=== PATIENT | female | born 1960 | race African-American/Black ===

== ENCOUNTER 2019-09-30 19:06 | Inpatient (IN) | payer BC ==
[~2019-09-30] VITALS: Ht 167.6 cm; Wt 64.7 kg
[2019-09-30] MEDS ORDERED: ACETAMINOPHEN 500 MG TABLET ONE (19:58)
[2019-09-30] MEDS ORDERED: ACETAMINOPHEN 500 MG TABLET PO ONE (20:00)
[2019-09-30] MEDS ORDERED: SODIUM CHLORIDE 0.9% 1,000ML IVBOLUS ONE (20:00)
[2019-09-30] MEDS ORDERED: SODIUM CHLORIDE FLUSH 10ML SYR IVF ONE (20:00)
[2019-09-30 20:23] LABS: MEAN CORPUSCULAR HGB CONC 32.2 g/dL (32.4-35.8); MEAN CORPUSCULAR VOLUME 77.8 fL (80-100); MEAN PLATELET VOLUME 9.6 fL (7.4-10.4); PLATELET COUNT 205 x10^3/uL (130-400); RED BLOOD COUNT 5.53 x10^6/uL (3.82-5.3); RED CELL DISTRIBUTION WIDTH 13.6 % (9.6-15.2)
[2019-09-30 20:28] LABS: ALANINE AMINOTRANSFERASE 23 U/L (12-78); ALBUMIN 3.1 g/dL (3.4-5.0); ANION GAP 5 mmol/L (5-15); CALCIUM 9.3 mg/dL (8.5-10.1); CHLORIDE 102 mmol/L (98-107); CREATININE 1.45 mg/dL (0.55-1.02)
[2019-09-30 20:30] LABS: ALKALINE PHOSPHATASE 129 U/L (45-117); BILIRUBIN,TOTAL 0.5 mg/dL (0.2-1.0); TOTAL PROTEIN 7.8 g/dL (6.4-8.2)
[2019-09-30 20:39] LABS: BASOPHILS # (AUTO) 0.02 x10^3/uL (0-0.1); BASOPHILS % (AUTO) 0 % (0-1); EOSINOPHILS # (AUTO) 0.01 x10^3/uL (0-0.4); EOSINOPHILS % (AUTO) 0 % (1-7); LYMPHOCYTES # (AUTO) 1.19 x10^3/uL (1-3.4); LYMPHOCYTES % (AUTO) 8 % (22-44); MD SCAN; MONOCYTES # (AUTO) 0.52 x10^3/uL (0.2-0.8); MONOCYTES % (AUTO) 4 % (2-9); NEUTROPHILS # (AUTO) 12.77 x10^3/uL (1.8-6.8); NEUTROPHILS % (AUTO) 88 % (42-75)
[2019-09-30 20:43] LABS: RAPID INFLUENZA A Negative (Negative); RAPID INFLUENZA B Negative (Negative)
[2019-09-30] MEDS ORDERED: PLEASE ENTER HEIGHT AND WEIGHT MC SCH (21:00)
[2019-09-30] MEDS ORDERED: PLEASE ENTER ALLERGIES MC SCH (21:00)
[2019-09-30] MEDS ORDERED: CEFTRIAXONE PMX 1GM/50ML 50 ML IV ONE (21:00)
--- NOTE | 2019-09-30 21:14 | NUR ---
pt attempted to provide urine sample but was unable.
--- NOTE | 2019-09-30 21:32 | NUR ---
Informed patient about the need for a urine sample, pt refused straight cath for ua
[2019-09-30] MEDS ORDERED: CEFTRIAXONE PMX 1GM/50ML 50 ML ONE (21:33)
[2019-09-30] MEDS ORDERED: SODIUM CHLORIDE 0.9% 1,000 ML IV ONE (23:18)
[2019-09-30] MEDS ORDERED: SODIUM CHLORIDE FLUSH 10ML SYR IVF PRN (23:30)
[2019-09-30] MEDS ORDERED: hydrALAzine 20 MG/ML, 1ML IVPush PRN (23:30)
[2019-09-30 23:41] LABS: INTERNATIONAL NORMALIZED RATIO 0.99 (0.93-1.1); PROTHROMBIN TIME 10.5 Seconds (9.6-11.5)
[2019-09-30 23:55] VITALS: BP 105/65
[2019-09-30 23:55] LABS: FREE T4 (FREE THYROXINE) 1.23 ng/dL (0.76-1.46)
[2019-10-01 00:07] VITALS: BP 105/65
[2019-10-01] MEDS: SODIUM CHLORIDE 0.9% 1,000 ML IV SCH ×2 (00:55→15:55)
[2019-10-01] MEDS: INSULIN LISPRO 100 UNITS/ML, PEN SQ-INSULIN SCH ×5 (01:12→21:51)
[2019-10-01] MEDS: INSULIN GLARGINE 100 UNITS/ML, PEN SQ-INSULIN SCH ×3 (01:12→21:52)
[2019-10-01] MEDS: HEPARIN 5,000 UNITS/ML, 1ML SQ SCH ×3 (01:12→16:47)
[2019-10-01 01:54] LABS: ESTIMATED AVERAGE GLUCOSE 355 mg/dL (0-126)
[2019-10-01] MEDS: ASPIRIN 81 MG TABLET EC PO SCH (05:43)
[2019-10-01 06:04] LABS: MEAN CORPUSCULAR HEMOGLOBIN 25.3 pg (27.0-34.8); MEAN CORPUSCULAR HGB CONC 32.4 g/dL (32.4-35.8); MEAN CORPUSCULAR VOLUME 77.9 fL (80-100); MEAN PLATELET VOLUME 9.4 fL (7.4-10.4); PLATELET COUNT 197 x10^3/uL (130-400); RED BLOOD COUNT 5.15 x10^6/uL (3.82-5.3); RED CELL DISTRIBUTION WIDTH 13.4 % (9.6-15.2)
[2019-10-01 06:15] LABS: ALANINE AMINOTRANSFERASE 26 U/L (12-78); ALBUMIN 2.7 g/dL (3.4-5.0); ANION GAP 6 mmol/L (5-15); CALCIUM 8.7 mg/dL (8.5-10.1); CHLORIDE 106 mmol/L (98-107)
[2019-10-01 06:18] LABS: ALKALINE PHOSPHATASE 110 U/L (45-117); BILIRUBIN,TOTAL 0.6 mg/dL (0.2-1.0); CREATININE 1.22 mg/dL (0.55-1.02); TOTAL PROTEIN 6.8 g/dL (6.4-8.2)
[2019-10-01 06:35] LABS: BASOPHILS # (AUTO) 0.03 x10^3/uL (0-0.1); BASOPHILS % (AUTO) 0 % (0-1); EOSINOPHILS % (AUTO) 0 % (1-7); LYMPHOCYTES # (AUTO) 1.24 x10^3/uL (1-3.4); LYMPHOCYTES % (AUTO) 9 % (22-44); MD SCAN; MONOCYTES # (AUTO) 1.07 x10^3/uL (0.2-0.8); MONOCYTES % (AUTO) 8 % (2-9); NEUTROPHILS # (AUTO) 10.81 x10^3/uL (1.8-6.8); NEUTROPHILS % (AUTO) 82 % (42-75)
[2019-10-01] MEDS: ONDANSETRON 2MG/ML, 2ML IVPush PRN ×2 (06:53→18:08)
[2019-10-01 07:41] LABS: MICROSCOPIC INDICATED
[2019-10-01 07:44] LABS: CULTURE INDICATED? YES
[2019-10-01 08:11] VITALS: BP 105/64
[2019-10-01] MEDS: CLOPIDOGREL 75 MG TABLET PO SCH (08:37)
[2019-10-01] MEDS: CILOSTAZOL 100 MG TABLET PO SCH (08:37)
[2019-10-01 12:57] VITALS: BP 98/63
[2019-10-01] MEDS: PREGABALIN 75 MG CAPSULE PO SCH (19:40)
[2019-10-01] MEDS: SIMVASTATIN 40 MG TABLET PO SCH (19:42)
[2019-10-01] MEDS: CEFTRIAXONE PMX 1GM/50ML 50 ML IV SCH (21:51)
[2019-10-01 22:31] VITALS: BP 122/74
[2019-10-01] MEDS: ACETAMINOPHEN 325 MG TABLET PO PRN (22:38)
[2019-10-02 00:55] VITALS: BP 116/72
[2019-10-02] MEDS: SODIUM CHLORIDE 0.9% 1,000 ML IV SCH ×2 (03:13→20:28)
[2019-10-02] MEDS: ASPIRIN 81 MG TABLET EC PO SCH (05:31)
[2019-10-02] MEDS: HEPARIN 5,000 UNITS/ML, 1ML SQ SCH ×2 (05:31→16:53)
[2019-10-02 05:55] LABS: BASOPHILS # (AUTO) 0.03 x10^3/uL (0-0.1); BASOPHILS % (AUTO) 0 % (0-1); EOSINOPHILS # (AUTO) 0.05 x10^3/uL (0-0.4); EOSINOPHILS % (AUTO) 1 % (1-7); LYMPHOCYTES # (AUTO) 1.62 x10^3/uL (1-3.4); LYMPHOCYTES % (AUTO) 17 % (22-44); MD NO; MEAN CORPUSCULAR HEMOGLOBIN 25.2 pg (27.0-34.8); MEAN CORPUSCULAR HGB CONC 32.1 g/dL (32.4-35.8); MEAN CORPUSCULAR VOLUME 78.6 fL (80-100); MEAN PLATELET VOLUME 9.6 fL (7.4-10.4); MONOCYTES % (AUTO) 10 % (2-9); NEUTROPHILS # (AUTO) 6.81 x10^3/uL (1.8-6.8); NEUTROPHILS % (AUTO) 72 % (42-75); PLATELET COUNT 180 x10^3/uL (130-400); RED BLOOD COUNT 5.06 x10^6/uL (3.82-5.3); RED CELL DISTRIBUTION WIDTH 13.5 % (9.6-15.2)
[2019-10-02 06:00] LABS: ANION GAP 9 mmol/L (5-15); CALCIUM 8.8 mg/dL (8.5-10.1); CHLORIDE 104 mmol/L (98-107); CREATININE 1.25 mg/dL (0.55-1.02)
[2019-10-02] MEDS: INSULIN LISPRO 100 UNITS/ML, PEN SQ-INSULIN SCH ×4 (07:32→21:41)
[2019-10-02] MEDS: INSULIN GLARGINE 100 UNITS/ML, PEN SQ-INSULIN SCH ×2 (07:33→21:41)
[2019-10-02] MEDS: CILOSTAZOL 100 MG TABLET PO SCH (07:33)
[2019-10-02] MEDS: CLOPIDOGREL 75 MG TABLET PO SCH (07:33)
[2019-10-02 09:05] VITALS: BP 105/64
[2019-10-02 19:50] VITALS: BP 93/59
[2019-10-02] MEDS: PREGABALIN 75 MG CAPSULE PO SCH (20:25)
[2019-10-02] MEDS: SIMVASTATIN 40 MG TABLET PO SCH (20:25)
[2019-10-02] MEDS: ACETAMINOPHEN 325 MG TABLET PO PRN (21:41)
[2019-10-02] MEDS: CEFTRIAXONE PMX 1GM/50ML 50 ML IV SCH (21:42)
[2019-10-03 02:09] VITALS: BP 98/60
[2019-10-03 05:11] LABS: BASOPHILS # (AUTO) 0.01 x10^3/uL (0-0.1); BASOPHILS % (AUTO) 0 % (0-1); EOSINOPHILS # (AUTO) 0.06 x10^3/uL (0-0.4); EOSINOPHILS % (AUTO) 1 % (1-7); LYMPHOCYTES # (AUTO) 1.28 x10^3/uL (1-3.4); LYMPHOCYTES % (AUTO) 22 % (22-44); MD NO; MEAN CORPUSCULAR HEMOGLOBIN 25.4 pg (27.0-34.8); MEAN CORPUSCULAR HGB CONC 32.4 g/dL (32.4-35.8); MEAN CORPUSCULAR VOLUME 78.5 fL (80-100); MEAN PLATELET VOLUME 8.5 fL (7.4-10.4); MONOCYTES # (AUTO) 0.94 x10^3/uL (0.2-0.8); MONOCYTES % (AUTO) 16 % (2-9); NEUTROPHILS # (AUTO) 3.68 x10^3/uL (1.8-6.8); NEUTROPHILS % (AUTO) 62 % (42-75); PLATELET COUNT 186 x10^3/uL (130-400); RED BLOOD COUNT 4.51 x10^6/uL (3.82-5.3); RED CELL DISTRIBUTION WIDTH 13.2 % (9.6-15.2)
[2019-10-03 05:14] LABS: ANION GAP 7 mmol/L (5-15); CALCIUM 8.2 mg/dL (8.5-10.1); CHLORIDE 109 mmol/L (98-107); CREATININE 0.98 mg/dL (0.55-1.02)
[2019-10-03] MEDS: SODIUM CHLORIDE 0.9% 1,000 ML IV SCH (05:40)
[2019-10-03] MEDS: ASPIRIN 81 MG TABLET EC PO SCH (05:40)
[2019-10-03] MEDS: HEPARIN 5,000 UNITS/ML, 1ML SQ SCH ×3 (05:40→21:46)
[2019-10-03 06:58] VITALS: BP 112/67
[2019-10-03] MEDS: INSULIN LISPRO 100 UNITS/ML, PEN SQ-INSULIN SCH ×4 (07:00→20:13)
[2019-10-03] MEDS: CILOSTAZOL 100 MG TABLET PO SCH (08:46)
[2019-10-03] MEDS: CLOPIDOGREL 75 MG TABLET PO SCH (08:46)
[2019-10-03] MEDS: INSULIN GLARGINE 100 UNITS/ML, PEN SQ-INSULIN SCH ×2 (08:46→20:13)
[2019-10-03] MEDS: ACETAMINOPHEN 325 MG TABLET PO PRN ×2 (11:43→20:12)
[2019-10-03 12:12] VITALS: BP 124/71
[2019-10-03 19:50] VITALS: BP 142/72
[2019-10-03] MEDS: PREGABALIN 75 MG CAPSULE PO SCH (20:12)
[2019-10-03] MEDS: SIMVASTATIN 40 MG TABLET PO SCH (20:12)
[2019-10-03] MEDS: CEFTRIAXONE PMX 1GM/50ML 50 ML IV SCH (21:46)
[2019-10-04 03:24] VITALS: BP 123/73
[2019-10-04] MEDS: HEPARIN 5,000 UNITS/ML, 1ML SQ SCH ×2 (05:04→14:00)
[2019-10-04] MEDS: ASPIRIN 81 MG TABLET EC PO SCH (05:04)
[2019-10-04 05:28] LABS: CHLORIDE 107 mmol/L (98-107)
[2019-10-04 05:41] LABS: ANION GAP 6 mmol/L (5-15); CALCIUM 8.3 mg/dL (8.5-10.1); CREATININE 0.91 mg/dL (0.55-1.02)
[2019-10-04 05:54] LABS: MEAN CORPUSCULAR HEMOGLOBIN 25.5 pg (27.0-34.8); MEAN CORPUSCULAR HGB CONC 32.8 g/dL (32.4-35.8); MEAN CORPUSCULAR VOLUME 77.7 fL (80-100); PLATELET COUNT 211 x10^3/uL (130-400); RED BLOOD COUNT 4.38 x10^6/uL (3.82-5.3)
[2019-10-04 05:55] LABS: BASOPHILS # (AUTO) 0.05 x10^3/uL (0-0.1); BASOPHILS % (AUTO) 1 % (0-1); EOSINOPHILS # (AUTO) 0.12 x10^3/uL (0-0.4); EOSINOPHILS % (AUTO) 2 % (1-7); LYMPHOCYTES % (AUTO) 26 % (22-44); MD SCAN; MONOCYTES # (AUTO) 0.88 x10^3/uL (0.2-0.8); MONOCYTES % (AUTO) 12 % (2-9); NEUTROPHILS # (AUTO) 4.32 x10^3/uL (1.8-6.8); NEUTROPHILS % (AUTO) 59 % (42-75)
[2019-10-04 07:10] VITALS: BP 125/70
[2019-10-04] MEDS: INSULIN LISPRO 100 UNITS/ML, PEN SQ-INSULIN SCH ×2 (08:23→11:00)
[2019-10-04] MEDS: INSULIN GLARGINE 100 UNITS/ML, PEN SQ-INSULIN SCH (10:07)
[2019-10-04] MEDS: CILOSTAZOL 100 MG TABLET PO SCH (10:08)
[2019-10-04] MEDS: CLOPIDOGREL 75 MG TABLET PO SCH (10:08)
[2019-10-04] MEDS ORDERED: SULF1TAB24 PO (12:22)
[2019-10-04] MEDS ORDERED: ASPI81TA45 PO (12:22)
[2019-10-04] MEDS ORDERED: CLOP75TA PO (12:22)
[2019-10-04] MEDS ORDERED: PREG75CA PO (12:22)
[2019-10-04] MEDS ORDERED: SIMV40TA20 PO (12:22)
[2019-10-04] MEDS ORDERED: CILO100T PO (12:22)
== END 2019-10-04 14:25 | disposition left against medical advice (07) | DRG 871 ==
LOC: ED 21:43 → SUATTDRO 22:45 → EDIP 23:50 → 4NE 23:55 → 3N 10-01 17:16
PROVIDERS: ADMIT Hospitalist; ATTEND Internal Medicine
DX: A41.9 Sepsis, unspecified organism (principal); N17.0 Acute kidney failure with tubular necrosis; E11.22 Type 2 diabetes mellitus with diabetic chronic kidney disease; E11.51 Type 2 diabetes mellitus with diabetic peripheral angiopathy without gangrene; E11.65 Type 2 diabetes mellitus with hyperglycemia; E78.00 Pure hypercholesterolemia, unspecified; E78.5 Hyperlipidemia, unspecified; E86.0 Dehydration; I12.9 Hypertensive chronic kidney disease with stage 1 through stage 4 chronic kidney disease, or unspecified chronic kidney disease; I25.10 Atherosclerotic heart disease of native coronary artery without angina pectoris; I25.2 Old myocardial infarction; N18.9 Chronic kidney disease, unspecified; N30.90 Cystitis, unspecified without hematuria; R65.20 Severe sepsis without septic shock; Z53.29 Procedure and treatment not carried out because of patient's decision for other reasons; W18.30XA Fall on same level, unspecified, initial encounter; Y93.89 Activity, other specified; Y92.89 Other specified places as the place of occurrence of the external cause; Y99.8 Other external cause status; Z91.14 Patient's other noncompliance with medication regimen; Z95.5 Presence of coronary angioplasty implant and graft; Z90.710 Acquired absence of both cervix and uterus; Z87.891 Personal history of nicotine dependence; Z83.3 Family history of diabetes mellitus; Z88.6 Allergy status to analgesic agent
CPT/HCPCS: 36415; 71045; 72148; 80048; 80053; 81001; 82436; 82550; 82570; 82962; 83036; 83605; 83735; 84100; 84133; 84145; 84300; 84439; 84443; 85025; 85610; 85651; 87040; 87077; 87086; 87186; 87400; 96360; 96361; 99285; G0378; J0696; J1644; J2405; J1815; J7030